=== PATIENT | male | born 1960 | race Caucasian/White ===

== ENCOUNTER → 2019-12-13 | Outpatient (CLI) | payer OTHER ==
--- NOTE | 2019-12-13 12:37 | Diagnostic Imaging Report ---
TECHNIQUE: Magnetic resonance imaging of the LEFT SHOULDER was performed WITHOUT injected contrast. COMPARISON: None available. HISTORY: Left shoulder pain FINDINGS: MUSCLES AND TENDONS: Rotator Cuff: Tendons: Full thickness tear of the more anterior supraspinatus tendon at the humeral insertion with minimally retracted fibers. Additional partial-thickness articular sided tearing of the posterior supraspinatus and anterior infraspinatus tendon with retraction of the deep fibers. Muscles: No focal muscle atrophy. Biceps Tendon: The long head of the biceps tendon is perched medially in the bicipital groove with intra-articular tendinopathy. GLENOHUMERAL JOINT: Glenoid Labrum: Labral fraying. Articular Cartilage: No focal defect. AC JOINT AND ACROMION: Mild hypertrophic degenerative changes of the acromioclavicular joint. Downsloping acromion with spurring. BONE: No acute fracture. SOFT TISSUES: Mild fluid in the subacromial subdeltoid bursa. IMPRESSION: Anterior supraspinatus full-thickness tear with additional partial-thickness articular sided tearing of the posterior supraspinatus and infraspinatus as above. No atrophy. Downsloping acromion with subacromial spurring. Signed by: Dr. Abdirashid Martines M.D. on 12/13/2019 12:33 PM
== END ==
LOC: MRI 10:50
PROVIDERS: ATTEND Family Medicine
DX: S46.012D Strain of muscle(s) and tendon(s) of the rotator cuff of left shoulder, subsequent encounter (principal)

== ENCOUNTER → 2020-11-28 | Day surgery (SDC) | payer OTHER ==
[2020-11-26 14:19] LABS: BASOPHILS # (AUTO) 0.1 (0.0-0.1); BASOPHILS % 1.3 % (0.0-1.0); EOSINOPHILS # (AUTO) 0.3 (0.0-0.4); EOSINOPHILS % 4.2 % (0.0-6.0); HEMATOCRIT 50.6 % (38.2-49.6); HEMOGLOBIN 16.8 g/dL (14.0-18.0); LYMPHOCYTES % 26.4 % (18.0-39.1); MEAN CORPUSCULAR HEMOGLOBIN 30.4 pg (28-32); MEAN CORPUSCULAR HGB CONC 33.2 g/dL (31-35); MEAN CORPUSCULAR VOLUME 91.7 fL (81-99); MONOCYTES # (AUTO) 0.9 (0.2-0.8); MONOCYTES % 11.8 % (4.4-11.3); NEUTROPHILS # (AUTO) 4.2 (2.1-6.9); NEUTROPHILS % 55.4 % (38.7-80.0); PLATELET COUNT 242 x10e3/uL (140-360); RED BLOOD COUNT 5.52 x10e6/uL (4.3-5.7); RED CELL DISTRIBUTION WIDTH 13.2 % (11.7-14.4)
[~2020-11-28] MED LIST: ACETAMINOPHEN 1000 MG/100 ML 100 ML IV ONE; ADVIL200 MG PO; CANDICIDAL CAP1 EACH; CIALIS5 MG PO; CLINDAMYCIN PHOS 900MG/ 50ML 50 ML IV ONE; EPINEPHRINE 1 MG/ML 30ML VIAL ONE; FENTANYL CITRATE/PF 100MCG/2 ML INJ ONE; HYDROCODONE/APAP 10MG-325MG TAB ONE; MEPERIDINE HCL INJ 25 MG/ML VIAL ONE; OSTEO BI-FLEX1 EACH PO; SLOW-MAG64 MG PO; SODIUM CHLORIDE 0.9% 50ML 50 ML ONE; SUGAMMADEX SODIUM 200 MG/2 ML VIAL IV ONE; TESTOSTERO200 MG/1 M INJ; VIT C PO; ZINC SULFATE220 MG PO
[2020-11-28 10:00] VITALS: BP 149/100
== END | disposition home or self-care (01) ==
LOC: OR 06:07
PROVIDERS: ATTEND Orthopaedic Surgery
DX: S43.92XA Sprain of unspecified parts of left shoulder girdle, initial encounter (principal); M75.42 Impingement syndrome of left shoulder; M75.52 Bursitis of left shoulder; S43.432A Superior glenoid labrum lesion of left shoulder, initial encounter; E66.09 Other obesity due to excess calories; Z68.32 Body mass index [BMI] 32.0-32.9, adult; M12.212 Villonodular synovitis (pigmented), left shoulder; M75.122 Complete rotator cuff tear or rupture of left shoulder, not specified as traumatic; Z88.1 Allergy status to other antibiotic agents; Z01.810 Encounter for preprocedural cardiovascular examination; Z01.812 Encounter for preprocedural laboratory examination; Z20.822 Contact with and (suspected) exposure to COVID-19
CPT/HCPCS: 29807; 29823; 29824; 29826; 29827; 36415; 85025; 93005; C1713; J0131; J2175; J3010; U0002